=== PATIENT | male | born 1975 | race Caucasian/White ===

== ENCOUNTER 2020-03-06 00:47 | Outpatient (CLI) | payer BC, SELFPAY ==
--- NOTE | 2020-03-06 | DI.RAD_ITS ---
EXAM: XR LUMBAR SPINE COMPLETE and XR sacrum CLINICAL HISTORY: COCCYDYNIA,M53.3. TECHNIQUE: 2D digital imaging was performed. COMPARISON: CR XR SACRUM from 03/06/2020 FINDINGS: BONES: No fracture or destructive lesion. Vertebral bodies are unremarkable. No facet hypertrophy newton ntified. There is normal mineralization. DISKS: Intervertebral disc spaces are maintained. ALIGNMENT: Lumbar spinal alignment is within normal limits. No spondylolysis or spondylolisthesis. SOFT TISSUE: Normal. IMPRESSION: Unremarkable radiographs of the lumbar spine and sacrum. DATA REPOSITORY: RADIATION DOSE DELIVERED:
== END 2020-03-06 01:07 ==
PROVIDERS: PCP Physician Assistant; Visit Provider Physician Assistant
DX: M53.3 Sacrococcygeal disorders, not elsewhere classified (principal)
CPT/HCPCS: 72110; 72220

== ENCOUNTER 2021-12-07 16:41 | Outpatient (REF) | payer OTHER, SELFPAY ==
[2021-12-07 15:55] LABS: Calculated LDL 159 mg/dL (<100); Cholesterol 284 mg/dL (<200); HDL Cholesterol 47 mg/dL (40-60); Triglyceride 394 mg/dL (<150)
[2021-12-07 16:05] LABS: Hemoglobin A1C 6.1 % (<5.7)
== END 2021-12-07 16:42 | disposition home or self-care (01) ==
LOC: NCHCN 16:41
PROVIDERS: PCP Physician Assistant; Visit Provider Physician Assistant
DX: E78.5 Hyperlipidemia, unspecified (principal); R73.9 Hyperglycemia, unspecified
CPT/HCPCS: 80061; 83036

== ENCOUNTER 2022-03-02 14:04 | Outpatient (REF) | payer OTHER, SELFPAY ==
[2022-03-02 15:54] LABS: Anion Gap 10.7 mmol/L (3-11); BUN 17 mg/dL (7-18); CO2 25.3 mmol/L (21.0-32.0); Calcium 9.7 mg/dL (8.5-10.1); Calculated LDL 145 mg/dL (<100); Chloride 101 mmol/L (98-107); Cholesterol 269 mg/dL (<200); Estimated GFR 94.59 (mL/min/1.73m2); Glucose 96 mg/dL (74-106); HDL Cholesterol 52 mg/dL (40-60); Potassium 3.9 mmol/L (3.5-5.1); Sodium 137 mmol/L (136-145); Triglyceride 362 mg/dL (<150)
[2022-03-02 15:55] LABS: Hemoglobin A1C 6.1 % (<5.7)
== END 2022-03-02 14:05 | disposition home or self-care (01) ==
LOC: NCHCN 14:04
PROVIDERS: PCP Physician Assistant; Visit Provider Physician Assistant
DX: E78.5 Hyperlipidemia, unspecified (principal); R73.9 Hyperglycemia, unspecified; E66.8 Other obesity; I10 Essential (primary) hypertension
CPT/HCPCS: 80048; 80061; 83036

== ENCOUNTER 2023-03-31 13:38 | Outpatient (REF) | payer OTHER, SELFPAY ==
[2023-03-31 17:05] LABS: Anion Gap 10.8 mmol/L (3-11); BUN 23 mg/dL (7-18); CO2 26.2 mmol/L (21.0-32.0); Calcium 9.4 mg/dL (8.5-10.1); Calculated LDL 172 mg/dL (<100); Chloride 103 mmol/L (98-107); Cholesterol 273 mg/dL (<200); Glucose 107 mg/dL (74-106); HDL Cholesterol 47 mg/dL (40-60); Potassium 3.9 mmol/L (3.5-5.1); Sodium 140 mmol/L (136-145); Triglyceride 271 mg/dL (<150)
[2023-03-31 17:20] LABS: Hemoglobin A1C 6.1 % (<5.7)
== END 2023-03-31 13:39 | disposition home or self-care (01) ==
LOC: NCHCN 13:38
PROVIDERS: PCP Physician Assistant; Visit Provider Physician Assistant
DX: I10 Essential (primary) hypertension (principal); E78.5 Hyperlipidemia, unspecified; R73.9 Hyperglycemia, unspecified
CPT/HCPCS: 80048; 80061; 83036

== ENCOUNTER 2024-03-26 10:23 | Outpatient (REF) | payer OTHER, SELFPAY ==
[2024-03-26 15:03] LABS: Hemoglobin A1C 6.6 % (<5.7)
[2024-03-26 15:08] LABS: ALT 73 U/L (16-63); AST 40 U/L (15-37); Albumin 4.6 g/dL (3.4-5.0); Alkaline Phosphatase 73 U/L (46-116); Anion Gap 10.4 mmol/L (3-11); BUN 20 mg/dL (7-18); CO2 27.6 mmol/L (21.0-32.0); CREATININE 1.1 mg/dL (0.70-1.30); Calcium 9.6 mg/dL (8.5-10.1); Calculated LDL 91 mg/dL (<100); Chloride 102 mmol/L (98-107); Cholesterol 198 mg/dL (<200); Estimated GFR 83.32 (mL/min/1.73m2); Glucose 135 mg/dL (74-106); HDL Cholesterol 56 mg/dL (40-60); Potassium 3.8 mmol/L (3.5-5.1); Sodium 140 mmol/L (136-145); Total Protein 7.8 g/dL (6.4-8.2); Triglyceride 255 mg/dL (<150)
== END 2024-03-26 10:24 | disposition home or self-care (01) ==
LOC: NCHCN 10:23
PROVIDERS: PCP Physician Assistant; Visit Provider Physician Assistant
DX: I10 Essential (primary) hypertension (principal); R73.03 Prediabetes
CPT/HCPCS: 80053; 80061; 83036

== ENCOUNTER 2025-03-25 13:26 | Outpatient (REF) | payer OTHER, SELFPAY ==
[2025-03-25 16:25] LABS: Hemoglobin A1C 5.8 % (<5.7)
[2025-03-25 16:38] LABS: ALT 58 U/L (10-49); AST 34 U/L (<34); Albumin 4.7 g/dL (3.2-5.0); Alkaline Phosphatase 77 U/L (46-116); Anion Gap 9.8 mmol/L (3-11); BUN 17 mg/dL (9-23); Bilirubin, Total 0.40 mg/dL (0.2-1.2); CO2 29.2 mmol/L (20.0-31.0); Calcium 9.6 mg/dL (8.3-10.6); Chloride 103 mmol/L (98-107); Cholesterol 147 mg/dL (<200); Glucose 104 mg/dL (74-106); HDL Cholesterol 50 mg/dL (>40); Potassium 4.0 mmol/L (3.5-5.1); Sodium 142 mmol/L (136-145); Total Protein 7.5 g/dL (5.7-8.2)
== END 2025-03-25 13:27 | disposition home or self-care (01) ==
LOC: NCHCN 13:26
PROVIDERS: PCP Physician Assistant; Visit Provider Physician Assistant
DX: I10 Essential (primary) hypertension (principal); E11.9 Type 2 diabetes mellitus without complications; E78.5 Hyperlipidemia, unspecified
CPT/HCPCS: 80053; 80061; 83036